=== PATIENT | female | born 1965 | race Caucasian/White ===

== ENCOUNTER 2021-02-26 09:01 | Outpatient (CLI) | payer OTHER, SELFPAY ==
[2021-02-26 09:10] VITALS: BP 173/92; PULSE 75; RESP 16; TEMP 36.5; O2SAT 98; BMI 37.3
[2021-02-26] MEDS: 0.9% Saline Lock 10 ML Syringe IV (09:15)
[2021-02-26 10:05] VITALS: BP 182/100; PULSE 59; RESP 16; TEMP 36.9; O2SAT 98
[2021-02-26 10:54] VITALS: BP 171/78; PULSE 56; RESP 16; TEMP 36.9; O2SAT 98
== END 2021-02-26 11:06 | disposition home or self-care (01) ==
LOC: MS3OUT 09:01 → MS3 09:02
PROVIDERS: Referring Provider Nurse Practitioner Adult Health; Visit Provider Nurse Practitioner Adult Health
DX: Z23 Encounter for immunization (principal); U07.1 COVID-19; E11.9 Type 2 diabetes mellitus without complications
CPT/HCPCS: J7050; M0245; Q0245; A4216